=== PATIENT | female | born 1990 | race Caucasian/White ===

== ENCOUNTER 2022-03-01 15:29 | Emergency (ER) | payer MEDICAID, SELFPAY ==
[2022-03-01 15:30] VITALS: BP 134/86; PULSE 82; RESP 16; TEMP 35.8; O2SAT 99; BMI 30.7
--- NOTE | 2022-03-01 15:39 | EDS_ITS ---
HPI <CAMPBELL De - Last Filed: 03/01/22 15:47> History of Present Illness Chief Complaint: Dental Narrative Narrative: 31-year-old female no seen medical history presents to the emergency department with months of intermittent dental pain both on the left upper and left lower. Patient states that this is been an ongoing issue, she has broken teeth, multiple cavities. Patient denies any fevers or chills. Patient denies any history of rheumatic fever, trismus. Patient currently does not have a dentist appointment set up. She denies any nausea or vomiting. Denies any neck pain. Pain states the pain does go to her left ear at times. Pain is worse in the morning because she clenches her teeth. PFSH <CAMPBELL De - Last Filed: 03/01/22 15:47> [facility] Home Medications Zoloft 02/28/15 [History Last Taken Unknown] naproxen 500 mg tablet (Naprosyn) 500 mg PO BID PRN pain #20 tabs 03/01/22 [Rx Last Taken Unknown] penicillin V potassium 500 mg tablet 500 mg PO 4X/DAY #40 tabs 03/01/22 [Rx Last Taken Unknown] Allergy/AdvReac Type Severity Reaction Status Date / Time No Known Allergies Allergy Verified 03/01/22 15:31 Social History Smoking Status: Current every day smoker tobacco type: cigarettes ROS <CAMPBELL De - Last Filed: 03/01/22 15:47> ROS ED ROS Narrative Constitutional: Negative for fever, chills, weight loss, weakness Eyes: Negative for vision loss, vision change, double vision ENT: Negative for any sore throat, ear pain, congestion. Positive left upper, left lower jaw pain Cardiovascular: Negative for any chest pain, tightness, palpitations Respiratory: Negative for any cough, sputum production, hemoptysis, dyspnea, dyspnea on exertion, orthopnea Gastrointestinal: Negative for any abdominal pain, nausea, vomiting, diarrhea, constipation, blood in stool, blood in vomit : Negative for any urinary frequency, dysuria, retention, blood in urine Muscle skeletal: Negative for any muscle joint pain, stiffness, myalgias, arthralgias, neck pain, back pain Neurological: Negative for any headache, syncope, numbness or tingling, dizziness Skin: Negative for any rashes, lumps, itching, abrasions, lacerations Psychiatric: Negative for any depression, anxiety, stress, suicidal ideation, homicidal ideation Hematologic: Negative for any easy bruising, excessive bruising, easy bleeding Allergies: Negative for any eczema, hives, rash EXAM <CAMPBELL De - Last Filed: 03/01/22 15:47> Physical Exam Narrative Exam Narrative: Vital signs reviewed. HEET: Head normocephalic atraumatic, TMs clear bilaterally. Posterior pharynx is clear, moist mucous membranes. Nares clear bilaterally. Patient has multiple dental caries, patient has the left upper molar, left back molars are broken, exposed cavities. Patient does smoke cigarettes. Negative for any fluctuance, negative for any drainable abscess, negative for any signs or symptoms of deep tissue infection. Need for Zulema signs Neck: Supple with no lymphadenopathy or tenderness. No signs of meningismus, negative jolt sign. Cardiac: Regular rate and rhythm no murmurs gallops or rubs, equal peripheral pulses bilaterally. Respiratory: Lungs clear to auscultation bilaterally. No chest tenderness. Abdomen: Soft, nontender, nondistended. No abdominal bruit or pulsatile masses. No hepatosplenomegaly Extremities: No peripheral edema, no signs of gross trauma or deformity. Active full range of motion of all extremities. Neuro: Cranial nerves II through XII intact, no focal neurological deficits. Skin: Clean dry and intact with no rash, purpura, petechiae, vesicles or pustules. Backs/flank: No CVA tenderness, no midline spinal tenderness, no deformity. Psych: Normal mood and affect. No SI, HI or acute psychosis. Const Vital Signs: 03/01/22 15:30 Temperature 96.4 F L Temperature Source Temporal Pulse Rate 82 Respiratory Rate 16 Blood Pressure 134/86 H Blood Pressure Mean 102 Pulse Ox 99 Oxygen Delivery Method Room Air Positive well nourished and well developed General Appearance ED: well developed <Dr. Jarod Miller MD - Last Filed: 03/01/22 15:50> Physical Exam Const Vital Signs: 03/01/22 15:30 Temperature 96.4 F L Temperature Source Temporal Pulse Rate 82 Respiratory Rate 16 Blood Pressure 134/86 H Blood Pressure Mean 102 Pulse Ox 99 Oxygen Delivery Method Room Air MDM <CAMPBELL De - Last Filed: 03/01/22 15:47> [facility] Treatment and Re-Evaluation Narrative: Patient appears well, patient appears nontoxic, vital signs are stable. Patient presents to the emergency department with months of left upper and lower jaw pain. Patient's physical examination is consistent with dental caries, dental fracture. Patient does have pulpitis. Patient has worsening pain with cold. Patient will receive antibiotics, anti-inflammatories here. She will also receive a dental clinic sheet. She instructed to quit smoking, and to take antibiotics until finished. Patient is agreeable with the plan is stable for discharge <Dr. Jarod Miller MD - Last Filed: 03/01/22 15:50> [facility] Narrative Medical decision making narrative: I have personally performed a face to face assessment of the patient and have reviewed the LINDA Note. I performed a substantive portion of the visit including all aspects of the following. My bradford findings include: History is is remarkable for intermittent pain for the 1 to 2 months. She has seen a dentist. She was told she needs root canal on 5 teeth. She does have intolerance to cold and warm beverages. She denies fever, chills night sweats. She denies history of fever. She denies history of heart murmur, SBE or being immune suppressed. She denies difficulty opening or closing mouth completely. She denies change in voice. She denies facial swelling or neck swelling. She denies drooling. Exam is patient appears in no obvious discomfort. Vital signs are remarkable for slightly elevated blood pressure. There is no trismus. Patient has poor dentition. Tooth #18 and 19th are significantly decayed involving the pulp. There is evidence of gingivitis. There is no evidence of Ludewig's angina. There is no trismus. Ears normal. Trachea midline. There is no dysphonia. There is no drooling. Medical Decision Making patient has irreversible pulpitis. She also has significant dental caries. She was given a dental referral. She was informed that the pain would not subside until she is seen by a dentist and has definit bossman care. Other additions or changes: None Discharge Plan Triage Chief Complaint: Dental ED Midlevel Provider: Jay Potter ED Provider: Jarod Miller Dx/Rx/DC Orders Clinical Impression: Dental caries, Acute pulpitis Prescriptions: New penicillin V potassium 500 mg tablet 500 mg PO 4X/DAY Qty: 40 0RF naproxen [Naprosyn] 500 mg tablet 500 mg PO BID PRN (Reason: pain) Qty: 20 0RF No Action Zoloft Primary Care Provider: Care Physician,No Primary Referrals: Care Physician,No Primary [Primary Care Provider] - Activity Restrictions/Additional Instructions: Follow-up with a dental referral list
== END 2022-03-01 15:52 | disposition home or self-care (01) ==
LOC: ED 15:50
PROVIDERS: Emergency Provider Emergency Medicine; Visit Provider Emergency Medicine
DX: K04.02 Irreversible pulpitis (principal); K02.9 Dental caries, unspecified; F17.210 Nicotine dependence, cigarettes, uncomplicated; R03.0 Elevated blood-pressure reading, without diagnosis of hypertension
CPT/HCPCS: 99282

== ENCOUNTER 2022-12-05 12:55 | Emergency (ER) | payer MEDICAID, SELFPAY ==
[2022-12-05 12:56] VITALS: BP 134/74; PULSE 111; RESP 16; TEMP 36.8; O2SAT 97; BMI 35.1
--- NOTE | 2022-12-05 13:12 | EX.ED.DYSGE1 ---
HPI <BELINDA Barrientos - Last Filed: 12/05/22 14:25> History of Present Illness Chief Complaint: Flank Pain Narrative Narrative: 31-year-old female presents with left low back pain that radiates down into the hip and left groin x1 week. 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 Her back pain is worse with movement of her left leg or going from sitting to standing. She denies weakness, numbness or tingling, saddle anesthesia, bladder or bowel incontinence. She has no dysuria or hematuria. She is having a BM every other day. No fever, chills, nausea or vomiting. PFSH <BELINDA Barrientos - Last Filed: 12/05/22 14:25> [facility] Medical History (Updated 12/05/22 @ 14:01 by BELINDA Barrientos) Depression Home Medications Zoloft 02/28/15 [History Last Taken Unknown] naproxen 500 mg tablet (Naprosyn) 500 mg PO BID PRN pain #20 tabs 03/01/22 [Rx Last Taken Unknown] penicillin V potassium 500 mg tablet 500 mg PO 4X/DAY #40 tabs 03/01/22 [Rx Last Taken Unknown] cyclobenzaprine 10 mg tablet 10 mg PO TID PRN Muscle Spasm #10 TABLETS 12/05/22 [Rx Last Taken Unknown] naproxen 500 mg tablet (Naprosyn) 500 mg PO BID PRN pain #20 tabs 12/05/22 [Rx Last Taken Unknown] Allergy/AdvReac Type Severity Reaction Status Date / Time gain laundry soap Allergy Mild Hives Uncoded 12/05/22 12:59 Surgical History (Updated 12/05/22 @ 13:22 by Leilani Daniel RN) History of Social History Smoking Status: Current every day smoker tobacco type: cigarettes ROS <BELINDA Barrientos - Last Filed: 12/05/22 14:25> ROS ED ROS Narrative Constitutional: Negative for fever, chills, malaise. CVS: Negative for chest pain, syncope. Respiratory: Negative for shortness of breath, cough. GI: Negative for abdominal pain, nausea, vomiting, diarrhea, constipation, melena, hematochezia. : Negative for dysuria, hematuria or frequency. Neuro: Negative for motor/sensory dysfunction. Musc: Negative for joint pain, swelling, trauma. EXAM <BELINDA Barrientos - Last Filed: 12/05/22 14:25> Physical Exam Narrative Exam Narrative: CONST: Patient sitting in no acute distress. EYES: Normal inspection. NECK: Normal inspection. RESP: No respiratory distress, CTAB. CVS: Regular rate and rhythm, no murmur, no gallop. ABD: Soft and nontender, no guarding or rebound, nondistended. Back: Normal inspection, no CVA tenderness. No spinal tenderness, tender over left lumbar muscles. SKIN: Color normal, no rash, warm, dry, intact. EXTREMITIES: Normal appearance, no pedal edema. She has pain with left hip flexion but is 5/5 strength in bilateral hip flexion, knee flexion/extension, DF/PF. Normal sensation, 2+ DP pulses. NEURO: Oriented x4. PSYCH: Normal affect. Const Vital Signs: 12/05/22 12:56 Temperature 98.3 F Temperature Source Temporal Pulse Rate 111 H Respiratory Rate 16 Blood Pressure 134/74 H Blood Pressure Mean 94 Pulse Ox 97 Oxygen Delivery Method Room Air <Maverick Santos MD - Last Filed: 12/05/22 15:13> Physical Exam Const Vital Signs: 12/05/22 12:56 Temperature 98.3 F Temperature Source Temporal Pulse Rate 111 H Respiratory Rate 16 Blood Pressure 134/74 H Blood Pressure Mean 94 Pulse Ox 97 Oxygen Delivery Method Room Air MDM <BELINDA Barrientos - Last Filed: 12/05/22 14:25> MDM MDM Narrative Medical decision making narrative: Patient has left low back pain worse with movement of the left leg. No known injury although she has been more active at her job. She appears well and nontoxic. She has reproducible left lumbar tenderness. No significant spinal tenderness. Lower extremity MSPs and reflexes are intact. She does have some left back pain with movement of the left leg. Based on exam I think this is more of a back issue than it is a renal process and do not think blood work or imaging is indicated. She had no trauma so x-rays are not indicated and no red flags concerning for cauda equina syndrome. Her symptoms were treated with Toradol and I prescribed naproxen and Flexeril for home. She was discharged in stable condition. <Maverick Santos MD - Last Filed: 12/05/22 15:13> [facility] MDM Narrative Medical decision making narrative: Patient has left low back pain worse with movement of the left leg. No known injury although she has been more active at her job. She appears well and nontoxic. She has reproducible left lumbar tenderness. No significant spinal tenderness. Lower extremity MSPs and reflexes are intact. She does have some left back pain with movement of the left leg. Based on exam I think this is more of a back issue than it is a renal process and do not think blood work or imaging is indicated. She had no trauma so x-rays are not indicated and no red flags concerning for cauda equina syndrome. Her symptoms were treated with Toradol and I prescribed naproxen and Flexeril for home. She was discharged in stable condition. I have personally performed a face to face assessment of the patient and have reviewed the LINDA Note. I performed a substantive portion of the visit including all aspects of the following. 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 Exam is afebrile. Vital signs noted. Regular rate and rhythm. Lungs clear to auscultation bilaterally. Abdomen soft nontender. Positive tenderness to palpation left paraspinal musculature, lumbar, no vertebral point tenderness or bony step-off. Medical Decision Making: I do not feel that x-rays are indicated or urinalysis. I do feel this is more reproducible musculoskeletal pain. She was given Toradol for analgesia and a prescription will be written for naproxen and for Flexeril to take as needed. I feel she be discharged safely home with follow-up. Return instructions to the emergency department were reviewed. Disposition is discharged home in stable condition. Other additions or changes: [None] Discharge Plan Triage Chief Complaint: Flank Pain ED Midlevel Provider: Mere Vogt ED Provider: Maverick Santos Dx/Rx/DC Orders Clinical Impression: Low back pain Instructions: Back Basics: A Healthy Spine Prescriptions: New naproxen [Naprosyn] 500 mg tablet 500 mg PO BID PRN (Reason: pain) Qty: 20 0RF cyclobenzaprine 10 mg tablet 10 mg PO TID PRN (Reason: Muscle Spasm) Qty: 10 0RF No Action Zoloft penicillin V potassium 500 mg tablet 500 mg PO 4X/DAY Qty: 40 0RF naproxen [Naprosyn] 500 mg tablet 500 mg PO BID PRN (Reason: pain) Qty: 20 0RF [facility] Referrals: Care Physician,No Primary [Non-Staff] - Activity Restrictions/Additional Instructions: You can also add Tylenol every 6 hours as needed to the above medicines for additional pain control. Disposition Disposition: Home, Self Care Discharge Date/Time: 12/05/22 14:33
[2022-12-05] MEDS: Ketorolac 30 MG/ML Syringe IM (13:22)
== END 2022-12-05 14:33 | disposition home or self-care (01) ==
PROVIDERS: Emergency Provider Emergency Medicine; Visit Provider Emergency Medicine
DX: M54.50 Low back pain, unspecified (principal); R10.9 Unspecified abdominal pain; F17.210 Nicotine dependence, cigarettes, uncomplicated
CPT/HCPCS: 96372; 99282

== ENCOUNTER 2023-08-22 18:39 | Emergency (ER) | payer MEDICAID, SELFPAY ==
[2023-08-22 18:40] VITALS: BP 126/76; PULSE 97; RESP 16; TEMP 36.6; O2SAT 99; BMI 32.1
--- NOTE | 2023-08-22 19:32 | EDS_ITS ---
HPI <CAMPBELL De - Last Filed: 08/22/23 21:45> History of Present Illness Chief Complaint: Cold Sx Narrative Narrative: Patient is a 32-year-old female with history of PCOS who presents to the emerged department for 4 to 5 months of generalized illness. Patient states that she has been going to urgent care several times, she does have a primary care physician however has not seen them. Patient states that she was on amoxicillin 3 weeks ago, she has minimal relief. Patient presents today with facial pain congestion as well as gross sinus drainage. Patient denies any nausea or vomiting. Patient states that she is getting depressed because she is sick so often. [facility] <CAMPBELL De - Last Filed: 08/22/23 21:45> [facility] Medical History (Updated 08/22/23 @ 21:40 by CAMPBELL De) Depression Home Medications Zoloft 02/28/15 [History Last Taken Unknown] naproxen 500 mg tablet (Naprosyn) 500 mg PO BID PRN pain #20 tabs 03/01/22 [Rx Last Taken Unknown] penicillin V potassium 500 mg tablet 500 mg PO 4X/DAY #40 tabs 03/01/22 [Rx Last Taken Unknown] cyclobenzaprine 10 mg tablet 10 mg PO TID PRN Muscle Spasm #10 TABLETS 12/05/22 [Rx Last Taken Unknown] naproxen 500 mg tablet (Naprosyn) 500 mg PO BID PRN pain #20 tabs 12/05/22 [Rx Last Taken Unknown] cefdinir 300 mg capsule 300 mg PO BID #20 caps 08/22/23 [Rx Last Taken Unknown] prednisone 20 mg tablet 40 mg (2 x 20 mg) PO DAILY #5 tabs 08/22/23 [Rx Last Taken Unknown] Allergy/AdvReac Type Severity Reaction Status Date / Time Environmental Allergies: Allergy Severe Hives Verified 08/22/23 18:43 Uncoded Surgical History History of Social History Smoking Status: Current every day smoker tobacco type: cigarettes ROS <CAMPBELL De - Last Filed: 08/22/23 21:45> ROS ED ROS Narrative Constitutional: Negative for weight loss, weakness. Positive for intermittent fever and chills Eyes: Negative for vision loss, vision change, double vision ENT: Negative for any sore throat, ear pain. Positive for congestion Cardiovascular: Negative for any chest pain, tightness, palpitations Respiratory: Negative for any cough, sputum production, hemoptysis, dyspnea, dyspnea on exertion, orthopnea Gastrointestinal: Negative for any abdominal pain, nausea, vomiting, diarrhea, constipation, blood in stool, blood in vomit : Negative for any urinary frequency, dysuria, retention, blood in urine Muscle skeletal: Negative for any neck pain, back pain Neurological: Negative for any headache, syncope, dizziness Skin: Negative for any rashes, itching, abrasions, lacerations Psychiatric: Negative for any depression, anxiety, stress, suicidal ideation, homicidal ideation Hematologic: Negative for any excessive bruising, easy bleeding EXAM <CAMPBELL De - Last Filed: 08/22/23 21:45> Physical Exam Narrative Exam Narrative: Vital signs reviewed. HEET: Head normocephalic atraumatic, TMs clear bilaterally. Posterior pharynx is clear, moist mucous membranes. Nares show yellow discharge bilaterally. Positive for facial pain to the frontal and maxillary sinuses Neck: Supple with no lymphadenopathy or tenderness. No signs of meningismus. Cardiac: Regular rate and rhythm no murmurs gallops or rubs, equal peripheral pulses bilaterally. Respiratory: Lungs clear to auscultation bilaterally. No chest tenderness. Abdomen: Soft, nontender, nondistended. No abdominal bruit or pulsatile masses. No hepatosplenomegaly Extremities: No peripheral edema, no signs of gross trauma or deformity. Active full range of motion of all extremities. Neuro: Cranial nerves II through XII intact, no focal neurological deficits. Skin: Clean dry and intact with no rash, purpura, petechiae, vesicles or pustules. Backs/flank: No CVA tenderness, no midline spinal tenderness, no deformity. Psych: Normal mood and affect. No SI, HI or acute psychosis. Const Vital Signs: 08/22/23 18:40 08/22/23 18:39 08/22/23 21:53 Temperature 98 F 98 F Temperature Source Temporal Pulse Rate 97 97 Respiratory Rate 16 16 Respiratory Effort Normal Respiratory Pattern Normal Blood Pressure 126/76 H 126/76 H Blood Pressure Mean 92 92 Pulse Ox 99 99 Oxygen Delivery Method Room Air <Dr. Dagoberto Mcdonald MD - Last Filed: 08/22/23 22:12> Physical Exam Const Vital Signs: 08/22/23 18:40 08/22/23 18:39 08/22/23 21:53 Temperature 98 F 98 F Temperature Source Temporal Pulse Rate 97 97 Respiratory Rate 16 16 Respiratory Effort Normal Respiratory Pattern Normal Blood Pressure 126/76 H 126/76 H Blood Pressure Mean 92 92 Pulse Ox 99 99 Oxygen Delivery Method Room Air [facility] <CAMPBELL De - Last Filed: 08/22/23 21:45> [facility] Lab Data Labs: Laboratory Results - last 24 hr 08/22/23 19:40 Monoscreen Negative Treatment and Re-Evaluation :: Differential diagnosis includes however is not limited to: Viral syndrome such as COVID-19, influenza, RSV, acute bacterial sinusitis, mononucleosis. Patient appears generally well, patient appears nontoxic, vital signs are stable. Presenting to the emergency department for complaints of ongoing illness for the last 4 months. Most of these symptoms are upper respiratory in nature. Today, the patient will receive a monotest, two-view chest x-ray, patient be started on prednisone. Patient's chest x-ray was unremarkable. Return to the ER physician, monoscreen was negative. At this time, I do believe the patient can be treated with antibiotics for a bacterial sinusitis. Patient will also be given a short course of steroids. She will follow-up outpatient. She is instructed to quit smoking. All questions were answered, I spoke with the patient regarding her return precautions. She is happy with the plan of care, stable for discharge. <Dr. Dagoberto Mcdonald MD - Last Filed: 08/22/23 22:12> [facility] Narrative Medical decision making narrative: I have personally performed a face to face assessment of the patient and have reviewed the LINDA Note. I performed a substantive portion of the visit including all aspects of the following. My bradford findings include: History is patient has had sinus congestion and pain along with sinus headaches for the past 2+ weeks, she does not feel that she is getting better. She has occasional cough. She also states she has had recurrent URIs for the past 3 months or more. She was diagnosed with strep at urgent care a month or so ago with a positive swab but she was also having lots of congestion and a cough, which she states did not go away with the amoxicillin she took. Exam is congested but no purulent nasal discharge at this time. Posterior pharynx is clear. Lungs clear. Bilateral maxillary and ethmoid sinus tenderness. Face normal on inspection otherwise. Medical Decison Making given duration of symptoms reasonable to try empiric antibiotic therapy, will upgrade class from plain amoxicillin to third- generation cephalosporin for broader coverage. Other additions or changes: [None] Lab Data Labs: Laboratory Results - last 24 hr 08/22/23 19:40 Monoscreen Negative Discharge Plan Triage Chief Complaint: Cold Sx ED Midlevel Provider: Jay Potter ED Provider: Dagoberto Mcdonald Dx/Rx/DC Orders Clinical Impression: Sinusitis Instructions: Chronic Sinusitis, ED Sinusitis (Antibiotic Treatment) Prescriptions: New cefdinir 300 mg capsule 300 mg PO BID Qty: 20 0RF prednisone 20 mg tablet 40 mg PO DAILY Qty: 5 0RF No Action Zoloft penicillin V potassium 500 mg tablet 500 mg PO 4X/DAY Qty: 40 0RF naproxen [Naprosyn] 500 mg tablet 500 mg PO BID PRN (Reason: pain) Qty: 20 0RF naproxen [Naprosyn] 500 mg tablet 500 mg PO BID PRN (Reason: pain) Qty: 20 0RF cyclobenzaprine 10 mg tablet 10 mg PO TID PRN (Reason: Muscle Spasm) Qty: 10 0RF Primary Care Provider: Raegan Pandey NP Referrals: Raegan Pandey [facility], [facility] [Primary Care Provider] - Activity Restrictions/Additional Instructions: Take the antibiotics until finished. Return for any worsening symptoms. Follow-up with your PCP. Disposition Disposition: Home, Self Care Discharge Date/Time: 08/22/23 21:54
[2023-08-22] MEDS: predniSONE 20 MG Tablet 40 MG PO (19:36)
--- NOTE | 2023-08-22 19:42 | RAD_ITS ---
EXAM: XR CHEST, 2 VIEWS CLINICAL INDICATION: COUGH TECHNIQUE: Frontal and lateral views of the chest. COMPARISON: No relevant prior studies available. FINDINGS: LUNGS AND PLEURAL SPACES: Unremarkable. No consolidation or edema. No pneumothorax. No effusion. HEART: Unremarkable. Cardiac silhouette not enlarged. MEDIASTINUM: Central airways and mediastinal contour are unremarkable. BONES/JOINTS: Unremarkable. No acute fracture. SOFT TISSUES: Unremarkable. RAD/Chest PA and Lateral IMPRESSION: No radiographic evidence of acute cardiopulmonary disease. Electronically Signed: Maged Simon MD at 20:00 EDT ,
[2023-08-22 20:07] LABS: Internal QC Validated? YES +Cl - CLEAR BKGD; Monotest Negative (Negative); Record Kit Lot#, Mono 13231163
[2023-08-22] MEDS: Cefdinir 300 MG Capsule PO (21:51)
[2023-08-22 21:53] VITALS: BP 126/76; PULSE 97; RESP 16; TEMP 36.6; O2SAT 99
== END 2023-08-22 21:54 | disposition home or self-care (01) ==
PROVIDERS: Nurse Practitioner; Emergency Provider Emergency Medicine; PCP Nurse Practitioner Family; Visit Provider Emergency Medicine
DX: J32.9 Chronic sinusitis, unspecified (principal); F17.210 Nicotine dependence, cigarettes, uncomplicated
CPT/HCPCS: 36415; 71046; 86308; 99283

== ENCOUNTER 2024-07-26 11:45 | Emergency (ER) | payer MEDICAID, SELFPAY ==
[2024-07-26 11:45] VITALS: BP 155/82; PULSE 108; RESP 16; TEMP 36.2; O2SAT 99; BMI 30.8
--- NOTE | 2024-07-26 12:58 | ED.VIS.BACK ---
HPI History of Present Illness Chief Complaint: Back Informant: patient Onset/Context/Timing Onset: Today and Yesterday Context: Gradual Onset Timing: Intermittent Quality: Sharp Current Severity: Mild Maximum Severity: Moderate Worsened by: improves with Movement Relieved by: Nothing Associated Symptoms Associated Symptoms: Negative for Numbness, Tingling, Radiation to Right Leg, Radiation to Left Leg, Fever, Abdominal Pain, Dysuria, Unable to Ambulate, Unable to Transfer, Urinary Incontinence, Constipation or Fecal Incontinence Narrative Narrative: 33-year-old female states that she had unloaded a truck at work several days later she was putting on her pants and had pain in her lower back. Now it is worse with any movement. Denies any back history. No prior back surgery. No fall or trauma. No fever. No dysuria. No bowel or bladder incontinence. No weakness or numbness. Prior similar symptoms: No Recent Illness/Hospitalization: No [facility] Medical History Depression Home Medications ?Medication ?Instructions ?Recorded ?Last Taken ?Type Zoloft 02/28/15 Unknown History naproxen 500 mg tablet (Naprosyn) 500 mg PO BID PRN pain #20 tabs 03/01/22 Unknown Rx penicillin V potassium 500 mg 500 mg PO 4X/DAY #40 tabs 03/01/22 Unknown Rx tablet cyclobenzaprine 10 mg tablet 10 mg PO TID PRN Muscle Spasm #10 12/05/22 Unknown Rx TABLETS naproxen 500 mg tablet (Naprosyn) 500 mg PO BID PRN pain #20 tabs 12/05/22 Unknown Rx cefdinir 300 mg capsule 300 mg PO BID #20 caps 08/22/23 Unknown Rx prednisone 20 mg tablet 40 mg (2 x 20 mg) PO DAILY #5 tabs 08/22/23 Unknown Rx metaxalone 800 mg tablet 800 mg PO TID 7 days #21 tabs 07/26/24 Unknown Rx Allergy/AdvReac Type Severity Reaction Status Date / Time Environmental Allergies: Allergy Severe Hives Verified 08/22/23 18:43 Uncoded Surgical History History of Social History Smoking Status: Current every day smoker tobacco type: cigarettes ROS ROS ED ROS Narrative Denies recent illness. Back pain. Constitutional Constitutional ED: Denies chills or fever(s) Eyes Eyes: Denies blurry vision ENT ENT ED: Denies ear pain Cardiovascular Cardiovascular: Denies chest pain Respiratory/Chest Respiratory/Chest: Denies dyspnea Gastrointestinal Gastrointestinal: Denies abdominal pain Genitourinary Genitourinary ED: Denies dysuria or hematuria Musculoskeletal Musculoskeletal: Reports back pain; Denies arthralgias, myalgias or neck pain Integumentary Denies abscess or Abrasions Neurologic Neurologic: Denies headache(s) Psychiatric Psychiatric: Denies anxiety Endocrine Endocrinology: Denies cold intolerance Hematologic/Lymphatic Hematologic/Lymphatic: Denies easy bleeding, easy bruising or lymphadenopathy Allergic/Immunologic Allergic/Immunologic ED: Denies mouth swelling, tongue swelling or urticaria EXAM Physical Exam Narrative Exam Narrative: 31-year-old female hallway chair due to current volume and acuity. Vital signs are stable afebrile. No distress. H EENT exam. Round react light. Moist venous membranes. Neck nontender no lymphadenopathy. Lungs clear to auscultation bilaterally. Heart regular rhythm rate about 100 no murmur. Chest wall ribs nontender. Abdomen soft nontender. No peritoneal signs. Pelvic girdle intact. Moving all 4 extremities. Normal rural carrier strength. Normal dorsi plantarflexion. No cauda equina. No saddle anesthesia. Normal medial thigh sensation. Normal range of motion. Negative straight leg raise. Back reproducible tenderness over lower lumbar and paralumbar soft tissues consistent with myofascial strain and spasm. No redness or warmth no bruising or signs of trauma. Neurologically she is awake and alert. No focal motor or sensory deficits. Const Vital Signs: 07/26/24 11:45 Temperature 97.1 F L Temperature Source Temporal Pulse Rate 108 H Respiratory Rate 16 Blood Pressure 155/82 H Blood Pressure Mean 106 Pulse Ox 99 Oxygen Delivery Method Room Air Positive well nourished and well developed; Negative for cachectic, contractures or unkempt General Appearance ED: well developed and NAD; Negative for unkempt, cachectic, contractures or pallor Nutritional Appearance: Negative for cachectic HEENT Reports moist mucous membranes Eyes EOMs intact bilaterally Neck no lymphadenopathy, supple and no JVD General: Negative for tenderness Resp normal respiratory effort and clear to auscultation bilaterally Cardio regular rate, regular rhythm, S1 normal heart sound, S2 normal heart sound and no murmurs Rate: Negative for bradycardia or tachycardic GI normal to inspection, nondistended, normoactive bowel sounds, soft to palpation, non-tender, non-distended and no masses Palpation: Negative for tender, guarding, mass, pulsatile mass or rebound tenderness present Back/Spine normal to inspection; Negative for no thoracic nor lumbar tenderness Back/Spine Narrative: Lower lumbar and paralumbar soft tissue tenderness consistent with myofascial strain and spasm. No ecchymosis or bruising. No redness or warmth. Extremity normal to inspection Extremity Narrative: Normal strength. Normal sensation of her lower extremities. No cauda equina. General Extremety ED: Negative for edema or tenderness General Extremity: Negative for edema Neuro oriented x3 and no sensory deficits noted Sensorium / Orientation: alert; Negative for confused, lethargic or stuporous Motor Exam: strength 5/5 throughout Psych mental status grossly normal Appearance: Negative for unkempt Attitude: No agitated Mood & Affect: Negative for depressed, sad or tearful Skin no rashes or lesions noted and no wounds General Skin Exam: Negative for jaundice or pallor Lesions: No lesion noted Rashes: No rashes noted Trauma: Negative for abrasion or puncture Wounds: Negative for wounds noted MDM MDM MDM Narrative Medical decision making narrative: Trauma does not need any imaging or labs. Patient is comfortable with the plan.33-year-old back strain muscle spasm. Treated with Skelaxin. Motrin and Tylenol. Hot shower warm bath. Discharge Plan Triage Chief Complaint: Back ED Provider: Lonnie Duong Dx/Rx/DC Orders Clinical Impression: Back strain, Back muscle spasm Instructions: ED Back Spasm, No Trauma Prescriptions: New metaxalone 800 mg tablet 800 mg PO TID 7 Days Qty: 21 0RF No Action Zoloft penicillin V potassium 500 mg tablet 500 mg PO 4X/DAY Qty: 40 0RF naproxen [Naprosyn] 500 mg tablet 500 mg PO BID PRN (Reason: pain) Qty: 20 0RF naproxen [Naprosyn] 500 mg tablet 500 mg PO BID PRN (Reason: pain) Qty: 20 0RF cyclobenzaprine 10 mg tablet 10 mg PO TID PRN (Reason: Muscle Spasm) Qty: 10 0RF cefdinir 300 mg capsule 300 mg PO BID Qty: 20 0RF prednisone 20 mg tablet 40 mg PO DAILY Qty: 5 0RF Primary Care Provider: Raegan Pandey NP Referrals: Raegan Pandey NP, [facility] [employer] [Primary Care Provider] - 1 Week if not improving Activity Restrictions/Additional Instructions: You strained muscles in your back and your back spasms. Take the muscle relaxant Skelaxin 1 pill 3 times a day usually by day 3 or 4 you will notice a large difference. Hot shower, warm bath massage. Motrin for pain and inflammation and Tylenol for pain. Follow-up with your doctor if not improving. Return if a lot worse. Print Language: Welsh Disposition Disposition: Home, Self Care
[2024-07-26] MEDS: Metaxalone 800 MG Tablet PO (13:16)
== END 2024-07-26 13:20 | disposition home or self-care (01) ==
PROVIDERS: Emergency Provider Emergency Medicine; PCP Nurse Practitioner Family; Visit Provider Emergency Medicine
DX: S39.012A Strain of muscle, fascia and tendon of lower back, initial encounter (principal); M62.830 Muscle spasm of back; F17.210 Nicotine dependence, cigarettes, uncomplicated; X50.0XXA Overexertion from strenuous movement or load, initial encounter; Y99.0 Civilian activity done for income or pay
CPT/HCPCS: 99282